=== PATIENT | female | born 1990 | race Caucasian/White ===

== ENCOUNTER 2019-08-26 17:19 | Emergency (ER) | payer OTHER ==
[2019-08-26 17:30] VITALS: BP 140/77; PULSE 70; TEMP 98.5; BMI 28.3
--- NOTE | 2019-08-26 18:13 | PDOC ---
History of Present Illness - General Chief Complaint: Wound Stated Complaint: BOIL ON LEFT SIDE Time Seen by Provider: 08/26/19 17:45 History Source: Patient Exam Limitations: No Limitations Past History - Travel Traveled outside of the country in the last 30 days: No Close contact w/someone who was outside of country & ill: No - Past Medical History Allergies/Adverse Reactions: Allergies Allergy/AdvReac Type Severity Reaction Status Date / Time No Known Allergies Allergy Verified 08/26/19 17:24 Home Medications: Ambulatory Orders Bisacodyl [Dulcolax -] 5 mg PO ASDIR PRN 08/26/19 Cephalexin Monohydrate [Keflex -] 500 mg PO BID #14 capsule 08/26/19 Ergocalciferol [Vitamin D2] 50,000 unit PO Q7D@1000 08/26/19 Sulfamethoxazole/Trimethoprim [Bactrim Ds -] 1 tab PO BID #14 tablet 08/26/19 - Psycho Social/Smoking Cessation Hx Smoking History: Never smoked Hx Alcohol Use: No Drug/Substance Use Hx: No Review of Systems - Review of Systems Able to Perform ROS?: Yes Comments:: 08/26/19 18:09 CONSTITUTIONAL: Absent: fever, chills, diaphoresis, generalized weakness, malaise, loss of appetite HEENT: Absent: rhinorrhea, nasal congestion, throat pain, throat swelling, difficulty swallowing, mouth swelling, ear pain, eye pain, visual Changes GENITOURINARY: Absent: dysuria, frequency, urgency, hesitancy, hematuria, flank pain, genital pain MUSCULOSKELETAL: Absent: myalgia, arthralgia, joint swelling SKIN: Present: "boils" Absent: rash, itching, pallor NEUROLOGIC: Absent: headache, focal weakness or paresthesias, dizziness, unsteady gait, seizure, mental status changes, bladder or bowel incontinence PSYCHIATRIC: Absent: anxiety, depression, suicidal or homicidal ideation, hallucinations. Is the patient limited [place] proficient: No *Physical Exam - Vital Signs Last Vital Signs Temp Pulse Resp BP Pulse Ox 98.5 F 70 16 140/77 99 08/26/19 17:28 08/26/19 17:28 08/26/19 17:28 08/26/19 17:28 08/26/19 17:28 - Physical Exam 08/26/19 18:26 GENERAL: The patient is awake, alert, and fully oriented, in no acute distress. HEAD: Normal with no signs of trauma. EYES: Pupils equal, round and reactive to light, extraocular movements intact, sclera anicteric, conjunctiva clear. EXTREMITIES: Normal range of motion, no edema. NEUROLOGICAL: Normal speech, normal gait. PSYCH: Normal mood, normal affect. SKIN: Patient with an abrasion to the left superior gluteal fold at the midline. Actively draining purulent material. No obvious abscess or boil. Patient also with acne-like lesions to the left lateral upper flank left paravertebral around L5. And warm, Dry, normal turgor, no rashes or lesions noted. Medical Decision Making - Medical Decision Making 08/26/19 18:34 The patient is a 29-year-old female with past medical history of constipation, presents to the ER today for multiple boils. She states that she has had a boil under her left bra line and left lower back for 2 days. She also notes she has an actively draining "scrape" on her left gluteal fold that is been there for 3 months. She notes that yesterday it was bleeding when she was straining to use the bathroom. She has not taken any antibiotics for this issue. Denies fevers, chills, urinary issues, blood in the stool. A/P: Cellulitis See exam findings. Patient also has external hemorrhoids. She notes that these are not with bleeding and that she knows the blood is coming from the scrape on her upper buttock. Denies blood in the toilet. There is purulent drainage coming from the area of cellulitis. No obvious abscess to drain. Concern for a pylonidal cyst versus chronic wound infection. Will treat with Bactrim and Keflex for all of the cellulitis versus acne. Patient placed on Bactrim and Keflex and told to follow-up with surgery for further evaluation. Return precautions given. I discussed the physical exam findings, ancillary test results and final diagnoses with the patient. I answered all of the patient's questions. The patient was satisfied with the care received and felt comfortable with the discharge plan and treatment plan. The Patient agrees to follow up with the primary care physician/specialist within 24-72 hours. Return precautions were given. Discharge - Discharge Information Problems reviewed: Yes Clinical Impression/Diagnosis: Cellulitis Qualifiers: Site of cellulitis: buttock Qualified Code(s): L03.317 - Cellulitis of buttock Condition: Stable Disposition: HOME - Admission No - Additional Discharge Information Prescriptions: Cephalexin Monohydrate [Keflex -] 500 mg PO BID #14 capsule Sulfamethoxazole/Trimethoprim [Bactrim Ds -] 1 tab PO BID #14 tablet - Follow up/Referral Referrals: Juancho Joe MD [Staff Physician] - - Patient Discharge Instructions Patient Printed Discharge Instructions: DI for Anal Abscess Additional Instructions: You have a skin infection or cellulitis near your buttocks. Please take the Bactrim and Keflex twice a day for one week. Please take all the antibiotics even if you feel better. You may use warm water soaks to the area. Please do this approximately 4-5 times a day. Please avoid shaving the skin around the area of redness. You may take Tylenol or Motrin as needed for pain. Please follow up with general surgery if your symptoms or not improving within a week. A referral has been provided. Return to the emergency department if you have worsening redness, fevers, increasing pain, or have any changes in your symptoms. - Post Discharge Activity Work/Back to School Note: Back to Work
== END 2019-08-26 18:16 | disposition home or self-care (01) ==
LOC: JERFT 17:19
DX: L03.317 Cellulitis of buttock (principal); K64.4 Residual hemorrhoidal skin tags; Z87.19 Personal history of other diseases of the digestive system
CPT/HCPCS: 99283-25

== ENCOUNTER 2019-08-30 09:52 | Emergency (ER) | payer OTHER ==
[2019-08-30 10:12] VITALS: BP 134/80; PULSE 82; TEMP 97.8; BMI 28.3
[2019-08-30] MEDS ORDERED: KETOROLAC TROMETHAMINE 60 MG/2 ML VIAL IM ONE (11:44)
[2019-08-30] MEDS ORDERED: KETOROLAC TROMETHAMINE 60 MG/2 ML VIAL ONE (11:51)
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
== END 2019-08-30 11:58 | disposition home or self-care (01) ==
LOC: JERFT 09:52
PROC: 3E0233Z Introduction of Anti-inflammatory into Muscle, Percutaneous Approach (ICD-10-PCS; principal; 2019-08-30)
DX: S46.812A Strain of other muscles, fascia and tendons at shoulder and upper arm level, left arm, initial encounter (principal); V49.49XA Driver injured in collision with other motor vehicles in traffic accident, initial encounter; Y92.414 Local residential or business street as the place of occurrence of the external cause; Y93.89 Activity, other specified; Y99.8 Other external cause status
CPT/HCPCS: 99284-25

== ENCOUNTER 2020-08-22 17:42 | Emergency (ER) | payer OTHER ==
[2020-08-22 17:56] VITALS: BP 117/61; PULSE 75; BMI 27.3
== END 2020-08-22 18:48 | disposition home or self-care (01) ==
LOC: JERFT 17:42
DX: D17.0 Benign lipomatous neoplasm of skin and subcutaneous tissue of head, face and neck (principal)
CPT/HCPCS: 99282-25

== ENCOUNTER 2021-01-31 15:30 | Emergency (ER) | payer OTHER ==
[2021-01-31 15:38] VITALS: BP 115/70; PULSE 77; TEMP 98.2; BMI 26.0
[2021-01-31] MEDS ORDERED: KETOROLAC TROMETHAMINE 60 MG/2 ML VIAL IM ONE (17:35)
== END 2021-01-31 18:03 | disposition home or self-care (01) ==
LOC: JER 15:30
PROC: 3E0233Z Introduction of Anti-inflammatory into Muscle, Percutaneous Approach (ICD-10-PCS; principal; 2021-01-31)
DX: S20.211A Contusion of right front wall of thorax, initial encounter (principal); W01.0XXA Fall on same level from slipping, tripping and stumbling without subsequent striking against object, initial encounter; Y93.19 Activity, other involving water and watercraft; Y92.831 Amusement park as the place of occurrence of the external cause
CPT/HCPCS: 71046-TC-FY; 71111-TC-FY; 99284-25

== ENCOUNTER 2022-06-25 13:23 | Emergency (ER) | payer OTHER ==
[2022-06-25 13:49] VITALS: BP 119/89; PULSE 75; RESP 18; TEMP 98.1; BMI 26.4
[2022-06-25] MEDS ORDERED: KETOROLAC TROMETHAMINE 15 MG/ML VIAL IVPUSH ONE (15:39)
[2022-06-25] MEDS ORDERED: ONDANSETRON 4 MG/2 ML VIAL IVPB ONE (15:39)
[2022-06-25] MEDS ORDERED: MAG HYDROX/AL HYDROX/SIMETH 30 ML UNIT-DOSE CUP PO ONE (15:42)
[2022-06-25] MEDS ORDERED: FAMOTIDINE 20 MG/50 ML IVPB 20 MG/50 ML MG IVPB ONE (15:42)
[2022-06-25] MEDS ORDERED: ACETAMINOPHEN 1000 MG/100 ML BAG IVPB ONE (15:42)
[2022-06-25] MEDS ORDERED: ONDANSETRON 4 MG TABLET PO ONE (16:15)
[2022-06-25] MEDS ORDERED: ONDANSETRON *ODT* 4 MG TABLET ONE (16:27)
[2022-06-25] MEDS ORDERED: MAG HYDROX/AL HYDROX/SIMETH 30 ML UNIT-DOSE CUP ONE (16:28)
[2022-06-25 17:51] LABS: EPI CELLS 35 /uL (0-25.1); HYALINE CASTS 0 /uL (0-3.1); PH,URINE 5.5 (5.0-8.0); URINE APPEARANCE CLEAR; URINE BACTERIA 328 /uL (0-1359); URINE BILIRUBIN NEGATIVE (NEGATIVE); URINE COLOR YELLOW; URINE GLUCOSE (UA) NEGATIVE (NEGATIVE); URINE KETONE NEGATIVE (NEGATIVE); URINE LEUK ESTERASE NEGATIVE (NEGATIVE); URINE NITRITE NEGATIVE (NEGATIVE); URINE PROTEIN NEGATIVE (NEGATIVE); URINE RBC 173 /uL (0-23.9); URINE WBC 28 /uL (0-25.8)
== END 2022-06-25 18:17 | disposition left against medical advice (07) ==
LOC: JER 13:23
DX: R10.9 Unspecified abdominal pain (principal)
CPT/HCPCS: 74176-TC; 81003; 82962; 84703; 87077; 87086; 93005; 93010; 99285-25

== ENCOUNTER 2023-08-06 13:32 | Inpatient (IN) | payer OTHER ==
[2023-08-06 13:46] VITALS: BMI 31.1
[2023-08-06] MEDS ORDERED: ACETAMINOPHEN INJECTION 100 ML IVPB ONE (15:49)
[2023-08-06] MEDS: ACETAMINOPHEN 1000 MG/100 ML BAG IVPB ONE (15:56)
[2023-08-06 16:00] LABS: BASO % 0.5 % (0-2.0); EOS % 1.8 % (0-4.5); HEMATOCRIT 38.8 % (32.4-45.2); HEMOGLOBIN 13.5 GM/dL (10.7-15.3); LYMPH % 26.2 % (8-40); MCH 31.7 pg (25.7-33.7); MCHC 34.8 g/dl (32.0-36.0); MEAN PLT VOLUME 8.2 fl (7.5-11.1); MONO % 6.6 % (3.8-10.2); NEUT % 64.9 % (42.8-82.8); PLATELET COUNT 337 10^3/uL (134-434); RBC 4.26 M/mm3 (3.60-5.2); RDW 12.5 % (11.6-15.6); WHITE BLOOD COUNT 9.4 K/mm3 (4.0-10.0)
[2023-08-06 16:02] LABS: URINE APPEARANCE CLEAR; URINE BILIRUBIN NEGATIVE (NEGATIVE); URINE COLOR YELLOW; URINE GLUCOSE (UA) NEGATIVE (NEGATIVE); URINE KETONE NEGATIVE (NEGATIVE); URINE LEUK ESTERASE NEGATIVE (NEGATIVE); URINE NITRITE NEGATIVE (NEGATIVE); URINE PROTEIN NEGATIVE (NEGATIVE); URINE UROBILINOGEN 0.2 mg/dL (0.2-1.0)
[2023-08-06 16:05] LABS: HCG,QUALITATIVE URINE Negative
[2023-08-06 16:14] LABS: INR 1.09 (0.83-1.09); PROTHROMBIN TIME (PATIENT) 12.6 SEC (9.7-13.0)
[2023-08-06 16:28] LABS: POTASSIUM 4.1 mmol/L (3.5-5.1)
[2023-08-06 16:30] LABS: CALCIUM 9.1 mg/dL (8.5-10.1)
[2023-08-06 16:31] LABS: ALBUMIN 3.6 g/dl (3.4-5.0); BLOOD UREA NITROGEN 9.1 mg/dL (7-18)
[2023-08-06 16:34] LABS: CREATININE 0.8 mg/dL (0.55-1.3)
[2023-08-06 16:36] LABS: BILIRUBIN,TOTAL 0.6 mg/dL (0.2-1)
[2023-08-06] MEDS ORDERED: morphine SULFATE 4 MG/ML VIAL IVPUSH ONE (18:43)
[2023-08-06] MEDS ORDERED: morphine SULFATE 4 MG/ML VIAL ONE (18:51)
[2023-08-06] MEDS: morphine CARPU-JECT 4 MG/1 ML DISP.SYRIN IVPUSH ONE (19:00)
[2023-08-06] MEDS: SODIUM CHLORIDE 0.9% 500 ML INFUS.BAG IV ONE (19:01)
[2023-08-06] MEDS ORDERED: morphine SULFATE 4 MG/ML VIAL IVPUSH PRN (20:11)
[2023-08-06] MEDS: CEFOXITIN SODIUM 1 GM in DEXTROSE 5%-WATER - 100 ML IVPB ONE (20:22)
[2023-08-06] MEDS: SODIUM CHLORIDE 1,000 ML IV SCH (20:22)
[2023-08-06] MEDS: CEFOXITIN SODIUM 2 GM in DEXTROSE 5%-WATER - 100 ML IVPB SCH ×2 (21:04→23:03)
[2023-08-06] MEDS ORDERED: ONDANSETRON 4 MG/2 ML VIAL ONE (22:43)
[2023-08-06] MEDS ORDERED: KETOROLAC TROMETHAMINE 15 MG/ML VIAL ONE (22:43)
[2023-08-06] MEDS: ONDANSETRON 4 MG/2 ML VIAL IM PRN (23:02)
[2023-08-06] MEDS: KETOROLAC TROMETHAMINE 15 MG/ML VIAL IM PRN (23:03)
[2023-08-07] MEDS: oxyCODONE HCL 5 MG TABLET PO PRN (00:50)
[2023-08-07] MEDS ORDERED: ACETAMINOPHEN 325 MG TABLET (FP) ONE (07:33)
[2023-08-07] MEDS: ACETAMINOPHEN 325 MG TABLET (FP) PO PRN (07:40)
[2023-08-07 08:00] LABS: BASO % 0.3 % (0-2.0); HEMATOCRIT 36.8 % (32.4-45.2); HEMOGLOBIN 12.8 GM/dL (10.7-15.3); LYMPH % 28.7 % (8-40); MCH 31.9 pg (25.7-33.7); MEAN CELL VOLUME 91.1 fl (80-96); MEAN PLT VOLUME 8.4 fl (7.5-11.1); PLATELET COUNT 315 10^3/uL (134-434); RBC 4.03 M/mm3 (3.60-5.2); RDW 12.8 % (11.6-15.6); WHITE BLOOD COUNT 9.3 K/mm3 (4.0-10.0)
[2023-08-07 08:41] LABS: BLOOD UREA NITROGEN 8.9 mg/dL (7-18); CALCIUM 8.5 mg/dL (8.5-10.1)
[2023-08-07 08:43] LABS: ALBUMIN 3.2 g/dl (3.4-5.0)
[2023-08-07 08:44] LABS: CREATININE 0.9 mg/dL (0.55-1.3); MAGNESIUM 1.8 mg/dL (1.8-2.4)
[2023-08-07 08:45] LABS: BILIRUBIN,TOTAL 0.5 mg/dL (0.2-1)
[2023-08-07 08:46] LABS: PHOSPHOROUS 3.3 mg/dL (2.5-4.9)
[2023-08-07 08:48] LABS: TOT PROT 6.3 g/dl (6.4-8.2)
[2023-08-07] MEDS ORDERED: BUPIVACAINE HCL/PF 0.5% (5MG/ML) 10 ML VIAL ONE (09:50)
[2023-08-07] MEDS ORDERED: SUCCINYLCHOLINE CHLORIDE 200 MG/10 ML SYRINGE ONE (10:56)
[2023-08-07] MEDS ORDERED: MIDAZOLAM HCL 2 MG/2 ML SINGLE DOSE VIAL ONE (10:56)
[2023-08-07] MEDS ORDERED: PROPOFOL 40 ML ONE (10:56)
[2023-08-07] MEDS ORDERED: ROCURONIUM BROMIDE 50 MG/5 ML SYRINGE ONE (11:11)
[2023-08-07] MEDS: ceFAZolin SODIUM 1 GM VIAL IVPB ONE (11:18)
[2023-08-07] MEDS: BUPIVACAINE HCL/PF 0.5% (5MG/ML) 10 ML VIAL IJ ONE ×2 (11:24)
[2023-08-07] MEDS ORDERED: NEOSTIGMINE METHYLSULFATE 0.5 MG/1 ML - 10 ML MDV ONE (11:42)
[2023-08-07] MEDS ORDERED: ONDANSETRON 4 MG/2 ML VIAL IM PRN (12:41)
[2023-08-07] MEDS ORDERED: KETOROLAC TROMETHAMINE 15 MG/ML VIAL IM PRN (12:41)
[2023-08-07] MEDS ORDERED: oxyCODONE HCL 5 MG TABLET PO PRN (14:00)
[2023-08-07] MEDS ORDERED: ACETAMINOPHEN 325 MG TABLET (FP) PO PRN (14:00)
[2023-08-07] MEDS: morphine SULFATE 4 MG/ML VIAL IVPUSH PRN (16:00)
[2023-08-07] MEDS: SODIUM CHLORIDE 1,000 ML IV SCH (16:01)
[2023-08-07 16:12] VITALS: RESP 18
[2023-08-07] MEDS: LACTATED RINGERS SOLUTION 1,000 ML IV SCH (21:49)
[2023-08-08] MEDS: ACETAMINOPHEN 325 MG TABLET (FP) PO PRN ×2 (03:10→08:03)
[2023-08-08 10:55] VITALS: BP 121/68; PULSE 68; TEMP 98.4
[2023-08-08 11:27] LABS: BASO % 0.2 % (0-2.0); EOS % 0.6 % (0-4.5); HEMATOCRIT 35.6 % (32.4-45.2); HEMOGLOBIN 12.3 GM/dL (10.7-15.3); LYMPH % 27.1 % (8-40); MCH 31.4 pg (25.7-33.7); MCHC 34.6 g/dl (32.0-36.0); MEAN CELL VOLUME 90.8 fl (80-96); MONO % 7.3 % (3.8-10.2); NEUT % 64.8 % (42.8-82.8); PLATELET COUNT 303 10^3/uL (134-434); RBC 3.92 M/mm3 (3.60-5.2); RDW 12.8 % (11.6-15.6); WHITE BLOOD COUNT 11.5 K/mm3 (4.0-10.0)
[2023-08-08 11:47] LABS: POTASSIUM 3.6 mmol/L (3.5-5.1)
[2023-08-08 11:50] LABS: ALBUMIN 3.2 g/dl (3.4-5.0); BLOOD UREA NITROGEN 6.5 mg/dL (7-18); CALCIUM 8.4 mg/dL (8.5-10.1); MAGNESIUM 1.7 mg/dL (1.8-2.4)
[2023-08-08 11:53] LABS: CREATININE 0.7 mg/dL (0.55-1.3)
[2023-08-08 11:55] LABS: BILIRUBIN,TOTAL 1.2 mg/dL (0.2-1)
== END 2023-08-08 13:19 | disposition home or self-care (01) | DRG 399 ==
LOC: JER 13:32 → JERBED 18:54 → J6S 08-07 15:40
PROVIDERS: ADMIT Internal Medicine; ATTEND Nurse Practitioner Acute Care
PROC: 0DTJ4ZZ Resection of Appendix, Percutaneous Endoscopic Approach (ICD-10-PCS; principal; 2023-08-07 10:00)
DX: K35.890 Other acute appendicitis without perforation or gangrene (principal); K21.9 Gastro-esophageal reflux disease without esophagitis; N83.201 Unspecified ovarian cyst, right side
CPT/HCPCS: 36415; 74177-TC; 76830-TC; 80053; 81003; 83735; 84100; 84703; 85025; 85610; 85730; 86140; 86850; 86900; 86901; 87086; 88304-TC; 93005; 93010; 94010; 94760; 99285-25; J0131; Q9967